=== PATIENT | female | born 1995 | race Caucasian/White ===

== ENCOUNTER 2018-09-27 19:11 | Emergency (ER) | payer OTHER, BC ==
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
[2018-09-27 22:37] LABS: ANION GAP 18.6 mmol/L (5-15); CHLORIDE,CL 101 mmol/L (98-115); SODIUM,NA 139 mmol/L (136-145)
[2018-09-28] MEDS ORDERED: LORazepam 0.5 MG Tab PO ONE ×2 (00:27→00:30)
[2018-09-28] MEDS ORDERED: LORazepam 0.5 MG Tab ONE (00:28)
== END 2018-09-28 01:00 ==
LOC: KA.ED 19:11
DX: F33.9 Major depressive disorder, recurrent, unspecified (principal); Z88.8 Allergy status to other drugs, medicaments and biological substances; Z79.899 Other long term (current) drug therapy
CPT/HCPCS: 36415; 80053; 80305; 85025; 99285; A9270